=== PATIENT | male | born 1940 | race Caucasian/White ===

== ENCOUNTER → 2023-05-22 10:34 | Outpatient (CLI) | payer MEDICARE, SELFPAY ==
--- NOTE | ~2023-05-22 | US_ITS ---
EXAMINATION: US scrotum doppler DATE: 05/22/2023 11:16 INDICATION: Testicular swelling TECHNIQUE: Testicular sonogram utilizing grayscale and Doppler COMPARISON: None. FINDINGS: The right testis measures 3.3 x 3 x 3.6 cm. The left testis measures 5.2 x 1.8 x 2.4 cm. Th ere is normal vascular flow to both testes. The right epididymis is normal with normal vascular flow. There is a severe left hydrocele. The left epididymis is not visualized due to compression by the hy drocele.. No varicocele is seen. There is a small scrotal indu within the left hydrocele. IMPRESSION: 1. Severe left hydrocele. Reviewed, dictated and finalized at location L. IMPRESSION: 1. Severe left hydrocele.
== END ==
PROVIDERS: PCP Family Medicine; Visit Provider Urology
DX: N50.9 Disorder of male genital organs, unspecified (principal); N43.3 Hydrocele, unspecified
CPT/HCPCS: 76870; 93976